=== PATIENT | female | born 1990 | race African-American/Black ===

== ENCOUNTER 2016-06-05 12:05 | Emergency (ER) | payer OTHER ==
[~2016-06-05 12:05] MED LIST: FLINCHW9 PO; MOTR200T44 PO; PERC5TAB6 PO; TYLE167L PO
--- NOTE | 2016-06-05 12:37 | ECGEPIP ---
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
--- NOTE | 2016-06-05 13:20 | EDDOCDS ---
Nurse's Notes [facility] Name: Blaine Mack Age: 26 yrs Sex: Female : 1990 Arrival Date: 06/05/2016 Time: 12:05 Bed 12 Private MD: Diagnosis: Presentation: 06/05 12:10 Presenting complaint: Patient states: states fatigue and SOB with menses x 2 years, ml6 patient states that today she had left chest pressure and began hyperventilating, then states face went numb, patient denies chest pain now, refused any interventions by EMS. patient refused. Adult Sepsis Screening: The patient does not have new or worsening altered mentation. Patient's respiratory rate is less than 22. Systolic blood pressure is greater than 100. Patient has a qSOFA score of 0- Negative Sepsis Screen. Suicide/Homicide risk assessment- the patient denies having any suicidal and/or homicidal ideations and does not present with any other emotional, behavioral or mental health complaints. Status: Patient is not a dining service inspector or dependent. Transition of care: patient was not received from another setting of care. 12:10 Acuity: DAMEON Level 4 ml6 12:10 Method Of Arrival: Ambulance ml6 Triage Assessment: 12:12 General: Appears in no apparent distress, Behavior is appropriate for age, cooperative. ml6 Pain: Denies pain. HIV screening NA for this visit Offered previously. The patient is triaged at the bedside. See Assessment in Nurses Notes section of ED record. Neurological: No deficits noted. Level of Consciousness is awake, alert, Oriented to person, place, time, Breakfast Hostess are equal bilaterally. Cardiovascular: Capillary refill < 3 seconds is brisk in bilateral fingers toes Heart tones S1 S2 present Edema is absent. Pulses are all present. Rhythm is sinus rhythm No ectopy. Chest pain is described as vague, quality is pressure, is located in left anterior chest wall radiates Does not radiate. episodes are intermittent began 2 hours prior to arrival. Respiratory: No deficits noted. 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 none - PMHx: Anemia; Anxiety; Depression; ectopic ; - PSHx: ; plastic surgery to face, due to a dog bite with she was 8 yrs old; Salpingectomy- Left; - Social history: Smoking status: Patient states was never smoker of tobacco. No barriers to communication noted, Speaks appropriately for age. - : The pt / caregiver states he / she is not on anticoagulants. Home medication list is obtained from the patient. - Exposure Risk Screening:: None identified. Screenin:38 Screening information is obtained from the patient. Fall risk: No risks identified. ml6 Assistance ADL's: requires no assistance with activities of daily living. Abuse/DV Screen: The patient / caregiver reports he/she is: not in a situation that causes fear, pain or injury. Nutritional screening: No deficits noted. Advance Directives: Currently, there is no health care proxy. home support is adequate. Assessment: 12:12 General: see triage assessment. Cardiovascular: Capillary refill < 3 seconds is brisk ml6 in bilateral fingers toes Heart tones S1 S2 present Edema is absent. Pulses are all present. Rhythm is regular Chest pain is denied. 13:17 General: went into room, patient found not to be in room. ml6 Vital Signs: 12:16 BP 112 / 57 (auto/); Pulse 66; Resp 16; Temp 98.7(O); Pulse Ox 98% on R/A; Weight 56.7 ml6 kg (R); Height 5 ft. (152.40 cm) (R); Pain 0/10; 12:16 Body Mass Index 24.41 (56.70 kg, 152.40 cm) ml6 Vitals: 12:10 Log In Time N/A - ambulance arrival. ml6 ED Course: 12:06 Patient visited by Aneta Bautista, Box Loader. lbd 12:06 Patient moved to Waiting lbd 12:06 Patient moved to 12 lbd 12:30 EKG done. (by ED staff). Reviewed by Jean Carlos HENAO. jml1 12:34 Triage Initiated ml6 12:38 Patient visited by Donnie Temple RN. ml6 12:42 Patient visited by Jaime Hope. jml1 12:48 EKG-ADULT Returned. EDMS 13:14 Patient visited by Donnie Temple RN. ml6 13:15 [facility] 13:15 Patient visited by Jean Carlos Gomez FNP. galo 13:15 Patient visited by Jean Carlos Gomez FNP. galo Order Results: Radiology Order: EKG-ADULT Test: EKG-ADULT REASON FOR EXAMINATION: Chest Pain; Stationary ECG Study; [facility] - ED; ; Test Date: 2016-06-05; Pat Name: BLAINE MACK Department:; Room: -; Gender: F Director Speech: NINO; : 1990 Requested By: JERMAN Piedra; Order Number: [id number] Reading MD: Singh Kang; Measurements; Intervals [place]; Rate: 60 P: -19; AL: 145 QRS: 50; QRSD: 94 T: 35; QT: 389; QTc: 391; Interpretive Statements; SINUS RHYTHM WITH SINUS ARRHYTHMIA; EARLY REPOLARIZATION; SIMILAR TO PRIORS; Electronically Signed On 06-05-2016 12:37:19 EST by Singh Kang; Outcome: 13:17 Eloped from treatment room before seeing physician Time discovered patient gone: ml6 June 05, 2016. 13:19 Patient left the ED. ml6 Signatures: Dispatcher [employer] EDMS Aneta Bautista, Box Loader Unit lbd Jean Carlos Gomez FNP FNP ke Lowe, Matthew, RN RN ml6 Jaime Hope jml1 MTDD
--- NOTE | 2016-06-05 13:20 | EDDOCDS ---
Physician Documentation [facility] Name: Lisseth Whiteside Age: 26 yrs Sex: Female : 1990 Arrival Date: 06/05/2016 Time: 12:05 Bed 12 Private MD: Disposition: 06/05/16 13:19 Patient left the facility Before provider Exam, with Interventions. - Patient left due to Unknown reason. Historical: - Allergies: Amoxicillin (Hives); clindamycin HCl ("made her lose her mind x 9 months"); Macrobid (Hives); - Home Meds: 1. none - PMHx: Anemia; Anxiety; Depression; ectopic ; - PSHx: ; plastic surgery to face, due to a dog bite with she was 8 yrs old; Salpingectomy- Left; - Social history: Smoking status: Patient states was never smoker of tobacco. No barriers to communication noted, Speaks appropriately for age. - : The pt / caregiver states he / she is not on anticoagulants. Home medication list is obtained from the patient. - Exposure Risk Screening:: None identified. 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 (152.40 cm) (R); Pain 0/10; 12:16 Body Mass Index 24.41 (56.70 kg, 152.40 cm) ml6 MDM: 12:24 ECG WITH READING ER PHYS+CARDIAG ordered. EDMS Signatures: Dispatcher [employer] EDMS Donnie Temple, RN RN ml6 MTDD
--- NOTE | 2016-06-05 13:21 | EDDOCDS ---
Nurse's Notes [facility] Name: Blaine Mack Age: 26 yrs Sex: Female : 1990 Arrival Date: 06/05/2016 Time: 12:05 Bed 12 Private MD: Diagnosis: Presentation: 06/05 12:10 Presenting complaint: Patient states: states fatigue and SOB with menses x 2 years, ml6 patient states that today she had left chest pressure and began hyperventilating, then states face went numb, patient denies chest pain now, refused any interventions by EMS. patient refused. Adult Sepsis Screening: The patient does not have new or worsening altered mentation. Patient's respiratory rate is less than 22. Systolic blood pressure is greater than 100. Patient has a qSOFA score of 0- Negative Sepsis Screen. Suicide/Homicide risk assessment- the patient denies having any suicidal and/or homicidal ideations and does not present with any other emotional, behavioral or mental health complaints. 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 Transition of care: patient was not received from another setting of care. 12:10 Acuity: DAMEON Level 4 ml6 12:10 Method Of Arrival: Ambulance ml6 Triage Assessment: 12:12 General: Appears in no apparent distress, Behavior is appropriate for age, cooperative. ml6 Pain: Denies pain. HIV screening NA for this visit Offered previously. The patient is triaged at the bedside. See Assessment in Nurses Notes section of ED record. Neurological: No deficits noted. Level of Consciousness is awake, alert, Oriented to person, place, time, Seat Pack Inspector are equal bilaterally. Cardiovascular: Capillary refill < 3 seconds is brisk in bilateral fingers toes Heart tones S1 S2 present Edema is absent. Pulses are all present. Rhythm is sinus rhythm No ectopy. Chest pain is described as vague, quality is pressure, is located in left anterior chest wall radiates Does not radiate. episodes are intermittent began 2 hours prior to arrival. Respiratory: No deficits noted. 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 none - PMHx: Anemia; Anxiety; Depression; ectopic ; - PSHx: ; plastic surgery to face, due to a dog bite with she was 8 yrs old; Salpingectomy- Left; - Social history: Smoking status: Patient states was never smoker of tobacco. No barriers to communication noted, Speaks appropriately for age. - : The pt / caregiver states he / she is not on anticoagulants. Home medication list is obtained from the patient. - Exposure Risk Screening:: None identified. Screenin:38 Screening information is obtained from the patient. Fall risk: No risks identified. ml6 Assistance ADL's: requires no assistance with activities of daily living. Abuse/DV Screen: The patient / caregiver reports he/she is: not in a situation that causes fear, pain or injury. Nutritional screening: No deficits noted. Advance Directives: Currently, there is no health care proxy. home support is adequate. Assessment: 12:12 General: see triage assessment. Cardiovascular: Capillary refill < 3 seconds is brisk ml6 in bilateral fingers toes Heart tones S1 S2 present Edema is absent. Pulses are all present. Rhythm is regular Chest pain is denied. 13:17 General: went into room, patient found not to be in room. ml6 Vital Signs: 12:16 BP 112 / 57 (auto/); Pulse 66; Resp 16; Temp 98.7(O); Pulse Ox 98% on R/A; Weight 56.7 ml6 kg (R); Height 5 ft. (152.40 cm) (R); Pain 0/10; 12:16 Body Mass Index 24.41 (56.70 kg, 152.40 cm) ml6 Vitals: 12:10 Log In Time N/A - ambulance arrival. ml6 ED Course: 12:06 Patient visited by Aneta Bautista, Freight Car Repairer. lbd 12:06 Patient moved to Waiting lbd 12:06 Patient moved to 12 lbd 12:30 EKG done. (by ED staff). Reviewed by Jean Carlos HENAO. jml1 12:34 Triage Initiated ml6 12:38 Patient visited by Donnie Temple RN. ml6 12:42 Patient visited by Jaime Hope. jml1 12:48 EKG-ADULT Returned. EDMS 13:14 Patient visited by Donnie Temple RN. ml6 13:15 [facility] F[facility]. 13:15 Patient visited by Jean Carlos Gomez FNP. galo 13:15 Patient visited by Jean Carlos Gomez FNP. galo Order Results: Radiology Order: EKG-ADULT Test: EKG-ADULT REASON FOR EXAMINATION: Chest Pain; Stationary ECG Study; 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 13:19 Patient left the ED. ml6 13:20 Patient left the ED. ml6 Signatures: Dispatcher [employer]Host EDAneta Rodrigues, Freight Car Repairer Unit lbd Jean Carlos Gomez FNP FNP ke Lowe, Matthew, HERSON RN ml6 Jaime Hope jml1 MTDD
--- NOTE | 2016-06-05 13:21 | EDDOCDS ---
Physician Documentation [facility] Name: Lisseth Whiteside Age: 26 yrs Sex: Female : 1990 Arrival Date: 06/05/2016 Time: 12:05 Bed 12 Private MD: Disposition: 06/05/16 13:19 Patient left the facility Before provider Exam, with Interventions. - Patient left due to Unknown reason. Historical: - Allergies: Amoxicillin (Hives); clindamycin HCl ("made her lose her mind x 9 months"); Macrobid (Hives); - Home Meds: 1. none - PMHx: Anemia; Anxiety; Depression; ectopic ; - PSHx: ; plastic surgery to face, due to a dog bite with she was 8 yrs old; Salpingectomy- Left; - Social history: Smoking status: Patient states was never smoker of tobacco. No barriers to communication noted, Speaks appropriately for age. - : The pt / caregiver states he / she is not on anticoagulants. Home medication list is obtained from the patient. - Exposure Risk Screening:: None identified. 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 (152.40 cm) (R); Pain 0/10; 12:16 Body Mass Index 24.41 (56.70 kg, 152.40 cm) ml6 MDM: 12:24 ECG WITH READING ER PHYS+CARDIAG ordered. EDMS Signatures: Dispatcher [employer] EDMS Donnie Temple, RN RN ml6 MTDD
--- NOTE | 2016-06-07 14:21 | EDDOCDS ---
Physician Documentation [facility] Name: Lisseth Whiteside Age: 26 yrs Sex: Female : 1990 Arrival Date: 06/05/2016 Time: 12:05 Bed 12 Private MD: Disposition: 06/05/16 13:19 Patient left the facility Before provider Exam, with Interventions. - Patient left due to Unknown reason. Historical: - Allergies: Amoxicillin (Hives); clindamycin HCl ("made her lose her mind x 9 months"); Macrobid (Hives); - Home Meds: 1. none - PMHx: Anemia; Anxiety; Depression; ectopic ; - PSHx: ; plastic surgery to face, due to a dog bite with she was 8 yrs old; Salpingectomy- Left; - Social history: Smoking status: Patient states was never smoker of tobacco. No barriers to communication noted, Speaks appropriately for age. - : The pt / caregiver states he / she is not on anticoagulants. Home medication list is obtained from the patient. - Exposure Risk Screening:: None identified. 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 (152.40 cm) (R); Pain 0/10; 12:16 Body Mass Index 24.41 (56.70 kg, 152.40 cm) ml6 MDM: 12:24 ECG WITH READING ER PHYS+CARDIAG ordered. EDMS 13:20 Disposition: pt not in room eloped from department prior to evaluation.. galo 15:49 ECG/EKG was scanned into [email or web address] and attached to record. gb Signatures: Dispatcher [employer] EDMS Sarah Gipson, Jean Carlos Alexandra, BUSINESS ENGLISH INSTRUCTOR BUSINESS ENGLISH INSTRUCTOR Donnie Alfonso, RN RN ml6 The chart was reviewed and I authenticate all verbal orders and agree with the evaluation and treatment provided.Attachments: 15:49 ECG/EKG gb Chart Complete MTDD
--- NOTE | 2016-06-07 14:21 | EDDOCDS ---
Physician Documentation [facility] Name: Lisseth Whiteside Age: 26 yrs Sex: Female : 1990 Arrival Date: 06/05/2016 Time: 12:05 Bed 12 Private MD: Disposition: 06/05/16 13:19 Patient left the facility Before provider Exam, with Interventions. - Patient left due to Unknown reason. Historical: - Allergies: Amoxicillin (Hives); clindamycin HCl ("made her lose her mind x 9 months"); Macrobid (Hives); - Home Meds: 1. none - PMHx: Anemia; Anxiety; Depression; ectopic ; - PSHx: ; plastic surgery to face, due to a dog bite with she was 8 yrs old; Salpingectomy- Left; - Social history: Smoking status: Patient states was never smoker of tobacco. No barriers to communication noted, Speaks appropriately for age. - : The pt / caregiver states he / she is not on anticoagulants. Home medication list is obtained from the patient. - Exposure Risk Screening:: None identified. 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 (152.40 cm) (R); Pain 0/10; 12:16 Body Mass Index 24.41 (56.70 kg, 152.40 cm) ml6 MDM: 12:24 ECG WITH READING ER PHYS+CARDIAG ordered. EDMS 13:20 Disposition: pt not in room eloped from department prior to evaluation.. galo 15:49 ECG/EKG was scanned into [email or web address] and attached to record. gb Signatures: Dispatcher [employer] EDMS Sarah Gipson, Jean Carlos Alexandra, SHIPPING AND RECEIVING ASSISTANT SHIPPING AND RECEIVING ASSISTANT Donnie Alfonso, RN RN ml6 The chart was reviewed and I authenticate all verbal orders and agree with the evaluation and treatment provided.Attachments: 15:49 ECG/EKG gb Chart Complete MTDD
--- NOTE | 2016-06-07 14:22 | EDDOCDS ---
Nurse's Notes [facility] Name: Blaine Mack Age: 26 yrs Sex: Female : 1990 Arrival Date: 06/05/2016 Time: 12:05 Bed 12 Private MD: Diagnosis: Presentation: 06/05 12:10 Presenting complaint: Patient states: states fatigue and SOB with menses x 2 years, ml6 patient states that today she had left chest pressure and began hyperventilating, then states face went numb, patient denies chest pain now, refused any interventions by EMS. patient refused. Adult Sepsis Screening: The patient does not have new or worsening altered mentation. Patient's respiratory rate is less than 22. Systolic blood pressure is greater than 100. Patient has a qSOFA score of 0- Negative Sepsis Screen. Suicide/Homicide risk assessment- the patient denies having any suicidal and/or homicidal ideations and does not present with any other emotional, behavioral or mental health complaints. Status: Patient is not a customer service specialist or dependent. Transition of care: patient was not received from another setting of care. 12:10 Acuity: DAMEON Level 4 ml6 12:10 Method Of Arrival: Ambulance ml6 Triage Assessment: 12:12 General: Appears in no apparent distress, Behavior is appropriate for age, cooperative. ml6 Pain: Denies pain. HIV screening NA for this visit Offered previously. The patient is triaged at the bedside. See Assessment in Nurses Notes section of ED record. Neurological: No deficits noted. Level of Consciousness is awake, alert, Oriented to person, place, time, Mold Washer are equal bilaterally. Cardiovascular: Capillary refill < 3 seconds is brisk in bilateral fingers toes Heart tones S1 S2 present Edema is absent. Pulses are all present. Rhythm is sinus rhythm No ectopy. Chest pain is described as vague, quality is pressure, is located in left anterior chest wall radiates Does not radiate. episodes are intermittent began 2 hours prior to arrival. Respiratory: No deficits noted. 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 none - PMHx: Anemia; Anxiety; Depression; ectopic ; - PSHx: ; plastic surgery to face, due to a dog bite with she was 8 yrs old; Salpingectomy- Left; - Social history: Smoking status: Patient states was never smoker of tobacco. No barriers to communication noted, Speaks appropriately for age. - : The pt / caregiver states he / she is not on anticoagulants. Home medication list is obtained from the patient. - Exposure Risk Screening:: None identified. Screenin:38 Screening information is obtained from the patient. Fall risk: No risks identified. ml6 Assistance ADL's: requires no assistance with activities of daily living. Abuse/DV Screen: The patient / caregiver reports he/she is: not in a situation that causes fear, pain or injury. Nutritional screening: No deficits noted. Advance Directives: Currently, there is no health care proxy. home support is adequate. Assessment: 12:12 General: see triage assessment. Cardiovascular: Capillary refill < 3 seconds is brisk ml6 in bilateral fingers toes Heart tones S1 S2 present Edema is absent. Pulses are all present. Rhythm is regular Chest pain is denied. 13:17 General: went into room, patient found not to be in room. ml6 Vital Signs: 12:16 BP 112 / 57 (auto/); Pulse 66; Resp 16; Temp 98.7(O); Pulse Ox 98% on R/A; Weight 56.7 ml6 kg (R); Height 5 ft. (152.40 cm) (R); Pain 0/10; 12:16 Body Mass Index 24.41 (56.70 kg, 152.40 cm) ml6 Vitals: 12:10 Log In Time N/A - ambulance arrival. ml6 ED Course: 12:06 Patient visited by Aneta Bautista, Clinical Trial Assistant. lbd 12:06 Patient moved to Waiting lbd 12:06 Patient moved to 12 lbd 12:30 EKG done. (by ED staff). Reviewed by Jean Carlos HENAO. jml1 12:34 Triage Initiated ml6 12:38 Patient visited by Donnie Temple RN. ml6 12:42 Patient visited by Jaime Hope. jml1 12:48 EKG-ADULT Returned. EDMS 13:14 Patient visited by Donnie Temple RN. ml6 13:15 [facility] 13:15 Patient visited by Jean Carlos Gomez FNP. ke 13:15 Patient visited by Jean Carlos Gomez FNP. ke 15:49 ECG/EKG was scanned into [employer] and attached to record. 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 13:19 Patient left the ED. ml6 13:20 Patient left the ED. ml6 06/06 12:15 A call has been made regarding followup for AMA or LWBS , I was unable to contact the tc patient by phone. A letter and discharge instructions has been mailed. Signatures: Dispatcher [employer] EDMS Aneta Bautista, Clinical Trial Assistant Unit lbd Mary Means Sarah Gipson, Reg Reg Jean Carlos Gomez FNP FNP ke Lowe, Matthew, RN RN ml6 Jaime Hopel1 Chart Complete MTDD
== END 2016-06-05 13:20 | disposition left against medical advice (07) ==
LOC: M ED 12:05
DX: Z53.21 Procedure and treatment not carried out due to patient leaving prior to being seen by health care provider (principal); D64.9 Anemia, unspecified; F41.9 Anxiety disorder, unspecified; F32.9 Major depressive disorder, single episode, unspecified; Z88.0 Allergy status to penicillin; Z88.1 Allergy status to other antibiotic agents

== ENCOUNTER 2016-08-26 23:19 | Emergency (ER) | payer OTHER ==
[~2016-08-26] VITALS: Ht 152.4 cm; Wt 54.4 kg
[2016-08-26 23:34] VITALS: BP 114/42
== END 2016-08-27 00:41 | disposition left against medical advice (07) ==
LOC: M ED 08-27 00:39
DX: Z53.29 Procedure and treatment not carried out because of patient's decision for other reasons (principal)

== ENCOUNTER 2016-10-08 10:48 | Emergency (ER) | payer OTHER ==
[~2016-10-08] VITALS: Ht 152.4 cm; Wt 53.5 kg
[~2016-10-08 10:48] MED LIST changes: +PERC5TAB12 PO; -PERC5TAB6 PO
[2016-10-08 12:47] LABS: CONTROL LINE UCG INT CTR LINE PRESENT
[2016-10-08 13:35] VITALS: BP 120/65
--- NOTE | 2016-10-08 13:39 | REP ---
PELVIC ULTRASOUND: Real-time sonographic evaluation of the pelvis performed utilizing transabdominal and endovaginal technique. Urinary bladder is empty. Uterus measures 9.6 x 4.2 x 5.5 cm. Endometrial thickness is 7 mm. The uterus appears to have a somewhat septate or subseptate appearance. Ovaries appear normal in size and echotexture, right ovary measuring 4.2 x 2.4 x 3.2 cm and left ovary 3.7 x 2.0 x 2.9 cm. There is no adnexal mass. There is trace free fluid which is likely physiologic in nature. There is no evidence of ovarian torsion, with blood flow seen in each ovary with duplex Doppler evaluation, RI right ovary 0.45 and left ovary 0.64. IMPRESSION: Negative pelvic ultrasound. Trace free fluid is likely physiologic. No mass or torsion. Signed by Rony Murillo MD 10/08/2016 05:02 P
[2016-10-08] MEDS ORDERED: METR0.759 PV (13:49)
[2017-02-20] MEDS ORDERED: CLIN150C14 PO (03:56)
[2017-02-20] MEDS ORDERED: IBUP-1022 PO (03:56)
[2017-02-20] MEDS ORDERED: NORCOTAB PO (03:56)
[2017-02-20] MEDS ORDERED: ZOFR4TAB3 PO (03:56)
== END 2016-10-08 13:53 | disposition home or self-care (01) ==
LOC: M ED 11:15
DX: N76.0 Acute vaginitis (principal); Z87.442 Personal history of urinary calculi; D64.9 Anemia, unspecified; F17.200 Nicotine dependence, unspecified, uncomplicated; Z88.0 Allergy status to penicillin; Z88.1 Allergy status to other antibiotic agents

== ENCOUNTER 2016-10-19 14:12 | Emergency (ER) | payer OTHER ==
[~2016-10-19] VITALS: Ht 152.4 cm; Wt 52.9 kg
[~2016-10-19 14:12] MED LIST changes: +METR0.759 PV
[2016-10-19] MEDS: ONDANSETRON 4 MG ORAL DISINTEGRATING TAB (S0181) PO ONE ×2 (14:45→14:47)
[2016-10-19 15:00] LABS: BASO % 0.2 % (0.0-1.0); EOS # 0.1 K/mm3 (0.0-0.50); EOS % 1.8 % (0.0-3.0); LARGE UNSTAINED CELL # 0.1 K/mm3 (0.0-0.4); LARGE UNSTAINED CELL % 1.2 % (0.0-4.0); LYMPH # 0.8 K/mm3 (1.5-6.5); LYMPH % 16.4 % (24.0-44.0); MEAN CORPUSCULAR HEMOGLOBIN 23.6 pg (27.0-33.0); MEAN CORPUSCULAR HGB CONC 31.2 g/dl (32.0-36.5); MEAN CORPUSCULAR VOLUME 75.5 fl (80.0-96.0); MONO # 0.2 K/mm3 (0.0-0.8); MONO % 4.5 % (0.0-5.0); NEUTROPHILS # 3.3 K/mm3 (1.8-7.7); NEUTROPHILS % 75.9 % (36.0-66.0); PLATELET COUNT, AUTOMATED 181 k/mm3 (150-450); RED CELL DISTRIBUTION WIDTH 15.6 % (11.5-14.5); WHITE BLOOD COUNT 4.4 K/mm3 (4.0-10.0)
[2016-10-19 15:27] LABS: ALBUMIN 3.9 GM/DL (3.2-5.2); ALBUMIN/GLOBULIN RATIO 1.08 (1.00-1.93); ALKALINE PHOSPHATASE 63 U/L (45-117); ALT/SGPT 14 U/L (12-78); ANION GAP 7 MEQ/L (8-16); AST/SGOT 13 U/L (15-37); BILIRUBIN,DIRECT 0.1 MG/DL (0.0-0.2); BILIRUBIN,TOTAL 0.5 MG/DL (0.2-1.0); BLOOD UREA NITROGEN 10 MG/DL (7-18); CALCIUM LEVEL 8.6 MG/DL (8.5-10.1); CARBON DIOXIDE LEVEL 20 MEQ/L (21-32); CHLORIDE LEVEL 112 MEQ/L (98-107); CREATININE FOR GFR 0.69 MG/DL (0.55-1.02); GLOMERULAR FILTRATION RATE > 60.0 (>60); GLUCOSE, FASTING 77 MG/DL (70-105); HCG, SERUM QUANTITATIVE < 1.0 MIU/ML; POTASSIUM SERUM 3.8 MEQ/L (3.5-5.1); SODIUM LEVEL 139 MEQ/L (136-145); TOTAL PROTEIN 7.5 GM/DL (6.4-8.2)
[2016-10-19] MEDS ORDERED: ZOFR4TAB3 PO (16:15)
[2016-10-19 16:22] VITALS: BP 106/71
[2017-02-20] MEDS ORDERED: CLIN150C14 PO (03:56)
[2017-02-20] MEDS ORDERED: ZOFR4TAB3 PO (03:56)
[2017-02-20] MEDS ORDERED: NORCOTAB PO (03:56)
[2017-02-20] MEDS ORDERED: IBUP-1022 PO (03:56)
== END 2016-10-19 16:22 | disposition home or self-care (01) ==
LOC: M ED 14:54
DX: R10.9 Unspecified abdominal pain (principal); R11.2 Nausea with vomiting, unspecified; R19.7 Diarrhea, unspecified; F17.210 Nicotine dependence, cigarettes, uncomplicated; Z87.442 Personal history of urinary calculi; Z88.0 Allergy status to penicillin; Z88.1 Allergy status to other antibiotic agents; Z88.8 Allergy status to other drugs, medicaments and biological substances

== ENCOUNTER 2017-04-15 12:17 | Emergency (ER) | payer MEDICAID, SELFPAY, OTHER ==
[2017-04-15 15:10] LABS: KETONE, URINE AUTO RFX NEGATIVE (NEGATIVE); LEUKOCYTE ESTERASE UR AUTO RFX 1+ (NEGATIVE); MUCUS, URINE RFX SMALL (NEGATIVE); NITRITE, URINE AUTO RFX NEGATIVE (NEGATIVE); RBC, URINE AUTO RFX 3 /HPF (0-3); SPECIFIC GRAVITY UR AUTO RFX 1.031 (1.002-1.035); SQUAM EPITHELIAL CELL UR AURFX 5 /HPF (0-6); WBC, URINE AUTO RFX 6 /HPF (0-3)
== END 2017-04-15 15:58 | disposition home or self-care (01) ==
LOC: M ED 12:17
DX: A56.02 Chlamydial vulvovaginitis (principal); N39.0 Urinary tract infection, site not specified; F41.9 Anxiety disorder, unspecified; F32.9 Major depressive disorder, single episode, unspecified; D64.9 Anemia, unspecified; F17.200 Nicotine dependence, unspecified, uncomplicated; Z87.442 Personal history of urinary calculi; Z88.0 Allergy status to penicillin; Z88.1 Allergy status to other antibiotic agents
CPT/HCPCS: 81001

== ENCOUNTER 2017-06-09 00:36 | Emergency (ER) | payer MEDICAID, OTHER ==
[2017-06-09 03:25] LABS: HEMATOCRIT 33.9 % (36.0-47.0); MEAN CORPUSCULAR HEMOGLOBIN 24.6 pg (27.0-33.0); MEAN CORPUSCULAR HGB CONC 32.4 g/dl (32.0-36.5); MEAN CORPUSCULAR VOLUME 75.8 fl (80.0-96.0); PLATELET COUNT, AUTOMATED 229 10^3/uL (150-450); RED BLOOD COUNT 4.47 10^6/uL (4.00-5.40); RED CELL DISTRIBUTION WIDTH 14.7 % (11.5-14.5); WHITE BLOOD COUNT 6.5 10^3/uL (4.0-10.0)
[2017-06-09 03:39] LABS: CONTROL LINE HCG INT CTR LINE PRESENT; HCG, SERUM QUALITATIVE NEGATIVE (NEGATIVE)
[2017-06-09 03:47] LABS: ALBUMIN 3.3 GM/DL (3.2-5.2); ALBUMIN/GLOBULIN RATIO 0.94 (1.00-1.93); ALKALINE PHOSPHATASE 56 U/L (45-117); ALT/SGPT 13 U/L (12-78); ANION GAP 7 MEQ/L (8-16); AST/SGOT 13 U/L (7-37); BILIRUBIN,DIRECT < 0.1 MG/DL (0.0-0.2); BILIRUBIN,TOTAL 0.2 MG/DL (0.2-1.0); BLOOD UREA NITROGEN 10 MG/DL (7-18); CALCIUM LEVEL 8.1 MG/DL (8.5-10.1); CARBON DIOXIDE LEVEL 25 MEQ/L (21-32); CHLORIDE LEVEL 112 MEQ/L (98-107); CREATININE FOR GFR 0.63 MG/DL (0.55-1.30); GLOMERULAR FILTRATION RATE > 60.0 (>60); GLUCOSE, FASTING 86 MG/DL (70-100); POTASSIUM SERUM 3.8 MEQ/L (3.5-5.1); SODIUM LEVEL 144 MEQ/L (136-145); TOTAL PROTEIN 6.8 GM/DL (6.4-8.2)
[2017-06-09] MEDS: GASTROGRAFIN SOLUTION 30ML PO ×4 (04:15→04:18)
[2017-06-09] MEDS ORDERED: ISOVUE-370 76% 100ML VIAL (Q9967) As Ordered ×2 (05:16)
[2017-06-09] MEDS: NS 1,000 ML IV ×2 (06:15)
[2017-06-09 06:22] LABS: KETONE, URINE AUTO RFX NEGATIVE (NEGATIVE); MUCUS, URINE RFX LARGE (NEGATIVE); RBC, URINE AUTO RFX 3 /HPF (0-3); SPECIFIC GRAVITY UR AUTO RFX 1.029 (1.002-1.035); SQUAM EPITHELIAL CELL UR AURFX 3 /HPF (0-6); WBC, URINE AUTO RFX 6 /HPF (0-3)
[2017-06-09 06:50] LABS: LEUKOCYTE ESTERASE UR AUTO RFX TRACE (NEGATIVE); NITRITE, URINE AUTO RFX POSITIVE (NEGATIVE)
[2017-06-09 11:55] LABS: CHLAMYDIA DNA AMPLIFICATION POSITIVE (NEGATIVE); GC DNA AMPLIFICATION NEGATIVE (NEGATIVE)
== END 2017-06-09 09:52 | disposition home or self-care (01) ==
LOC: M ED 00:36
DX: R10.2 Pelvic and perineal pain (principal); A74.9 Chlamydial infection, unspecified; Z88.0 Allergy status to penicillin; Z88.8 Allergy status to other drugs, medicaments and biological substances; F17.210 Nicotine dependence, cigarettes, uncomplicated
CPT/HCPCS: Q9963

== ENCOUNTER 2017-08-17 03:23 | Emergency (ER) | payer OTHER ==
[2017-08-17] MEDS: NS 1,000 ML IV (04:30)
[2017-08-17 04:36] LABS: BASO % 0.4 % (0.0-1.0); EOS # 0.2 10^3/uL (0.0-0.50); HEMATOCRIT 36.9 % (36.0-47.0); HEMOGLOBIN 11.8 g/dl (12.0-15.5); IMMATURE GRANULOCYTE % 0.4 % (0-3.0); LYMPH # 2.6 10^3/uL (1.5-6.5); LYMPH % 30.3 % (24.0-44.0); MEAN CORPUSCULAR HEMOGLOBIN 24.7 pg (27.0-33.0); MEAN CORPUSCULAR VOLUME 77.2 fl (80.0-96.0); MONO # 0.5 10^3/uL (0.0-0.8); MONO % 5.7 % (0.0-5.0); NEUTROPHILS # 5.2 10^3/uL (1.8-7.7); NEUTROPHILS % 61.2 % (36.0-66.0); PLATELET COUNT, AUTOMATED 250 10^3/uL (150-450); RED BLOOD COUNT 4.78 10^6/uL (4.00-5.40); RED CELL DISTRIBUTION WIDTH 14.6 % (11.5-14.5); WHITE BLOOD COUNT 8.5 10^3/uL (4.0-10.0)
[2017-08-17 04:42] LABS: KETONE, URINE AUTO RFX NEGATIVE (NEGATIVE); LEUKOCYTE ESTERASE UR AUTO RFX TRACE (NEGATIVE); MUCUS, URINE RFX SMALL (NEGATIVE); NITRITE, URINE AUTO RFX NEGATIVE (NEGATIVE); RBC, URINE AUTO RFX 5 /HPF (0-3); SPECIFIC GRAVITY UR AUTO RFX 1.029 (1.002-1.035); SQUAM EPITHELIAL CELL UR AURFX 4 /HPF (0-6); WBC, URINE AUTO RFX 6 /HPF (0-3)
[2017-08-17 04:52] LABS: CONTROL LINE HCG INT CTR LINE PRESENT; HCG, SERUM QUALITATIVE NEGATIVE (NEGATIVE)
[2017-08-17 05:00] LABS: ALBUMIN 3.9 GM/DL (3.2-5.2); ALKALINE PHOSPHATASE 58 U/L (45-117); ALT/SGPT 16 U/L (12-78); ANION GAP 7 MEQ/L (8-16); AST/SGOT 18 U/L (7-37); BILIRUBIN,DIRECT < 0.1 MG/DL (0.0-0.2); BILIRUBIN,TOTAL 0.1 MG/DL (0.2-1.0); BLOOD UREA NITROGEN 10 MG/DL (7-18); CALCIUM LEVEL 8.7 MG/DL (8.5-10.1); CARBON DIOXIDE LEVEL 22 MEQ/L (21-32); CHLORIDE LEVEL 111 MEQ/L (98-107); CREATININE FOR GFR 0.66 MG/DL (0.55-1.30); GLOMERULAR FILTRATION RATE > 60.0 (>60); GLUCOSE, FASTING 85 MG/DL (70-100); LIPASE 174 U/L (73-393); POTASSIUM SERUM 4.2 MEQ/L (3.5-5.1); SODIUM LEVEL 140 MEQ/L (136-145); TOTAL PROTEIN 7.8 GM/DL (6.4-8.2)
[2017-08-17 06:12] LABS: CHLAMYDIA DNA AMPLIFICATION NEGATIVE (NEGATIVE); GC DNA AMPLIFICATION NEGATIVE (NEGATIVE)
[2017-08-17] MEDS: MAALOX 30 ML SUSP *UDC PO (07:50)
== END 2017-08-17 07:56 | disposition home or self-care (01) ==
LOC: M ED 03:23
DX: R10.2 Pelvic and perineal pain (principal); F17.210 Nicotine dependence, cigarettes, uncomplicated; Z88.0 Allergy status to penicillin; Z88.8 Allergy status to other drugs, medicaments and biological substances
CPT/HCPCS: 76856

== ENCOUNTER 2017-09-09 05:39 | Emergency (ER) | payer OTHER | END 2017-09-09 09:34 | disposition home or self-care (01) | LOC: M ED 09:34 | DX: T74.21XA Adult sexual abuse, confirmed, initial encounter (principal); X58.XXXA Exposure to other specified factors, initial encounter; Y92.89 Other specified places as the place of occurrence of the external cause; R10.2 Pelvic and perineal pain; Z88.0 Allergy status to penicillin; Z88.8 Allergy status to other drugs, medicaments and biological substances | CPT/HCPCS: 81025 ==

== ENCOUNTER 2017-12-10 20:25 | Emergency (ER) | payer OTHER ==
[2017-12-10 22:40] LABS: KETONE, URINE AUTO RFX NEGATIVE (NEGATIVE); LEUKOCYTE ESTERASE UR AUTO RFX NEGATIVE (NEGATIVE); MUCUS, URINE RFX SMALL (NEGATIVE); NITRITE, URINE AUTO RFX NEGATIVE (NEGATIVE); RBC, URINE AUTO RFX 3 /HPF (0-3); SPECIFIC GRAVITY UR AUTO RFX 1.029 (1.002-1.035); SQUAM EPITHELIAL CELL UR AURFX 4 /HPF (0-6); WBC, URINE AUTO RFX 2 /HPF (0-3)
[2017-12-11 00:58] LABS: HCG, SERUM QUANTITATIVE 1025 MIU/ML
[2017-12-11 01:25] LABS: CHLAMYDIA DNA AMPLIFICATION NEGATIVE (NEGATIVE); GC DNA AMPLIFICATION NEGATIVE (NEGATIVE)
== END 2017-12-11 01:26 | disposition home or self-care (01) ==
LOC: M ED 12-11 01:26
DX: O99.89 Other specified diseases and conditions complicating pregnancy, childbirth and the puerperium (principal); N76.0 Acute vaginitis; Z3A.01 Less than 8 weeks gestation of pregnancy; O99.340 Other mental disorders complicating pregnancy, unspecified trimester; F41.9 Anxiety disorder, unspecified; O99.011 Anemia complicating pregnancy, first trimester; Z88.0 Allergy status to penicillin; Z88.8 Allergy status to other drugs, medicaments and biological substances; O09.11 Supervision of pregnancy with history of ectopic pregnancy, first trimester; O99.331 Smoking (tobacco) complicating pregnancy, first trimester; F17.210 Nicotine dependence, cigarettes, uncomplicated
CPT/HCPCS: 76801

== ENCOUNTER 2017-12-25 23:36 | Emergency (ER) | payer OTHER ==
[2017-12-26 01:06] LABS: BASO % 0.3 % (0.0-1.0); EOS # 0.2 10^3/uL (0.0-0.50); EOS % 2.4 % (0.0-3.0); HEMATOCRIT 36.1 % (36.0-47.0); HEMOGLOBIN 11.7 g/dl (12.0-15.5); IMMATURE GRANULOCYTE % 0.6 % (0-3.0); LYMPH # 2.4 10^3/uL (1.5-6.5); LYMPH % 27.3 % (24.0-44.0); MEAN CORPUSCULAR HGB CONC 32.4 g/dl (32.0-36.5); MEAN CORPUSCULAR VOLUME 77.1 fl (80.0-96.0); MONO # 0.6 10^3/uL (0.0-0.8); MONO % 7.2 % (0.0-5.0); NEUTROPHILS # 5.5 10^3/uL (1.8-7.7); NEUTROPHILS % 62.2 % (36.0-66.0); PLATELET COUNT, AUTOMATED 241 10^3/uL (150-450); RED BLOOD COUNT 4.68 10^6/uL (4.00-5.40); RED CELL DISTRIBUTION WIDTH 14.6 % (11.5-14.5); WHITE BLOOD COUNT 8.9 10^3/uL (4.0-10.0)
[2017-12-26 01:43] LABS: ANION GAP 7 MEQ/L (8-16); BLOOD UREA NITROGEN 10 MG/DL (7-18); CALCIUM LEVEL 8.8 MG/DL (8.5-10.1); CARBON DIOXIDE LEVEL 25 MEQ/L (21-32); CHLORIDE LEVEL 107 MEQ/L (98-107); CREATININE FOR GFR 0.67 MG/DL (0.55-1.30); GLOMERULAR FILTRATION RATE > 60.0 (>60); GLUCOSE, FASTING 77 MG/DL (70-100); HCG, SERUM QUANTITATIVE 69581 MIU/ML; POTASSIUM SERUM 3.5 MEQ/L (3.5-5.1); SODIUM LEVEL 139 MEQ/L (136-145)
[2017-12-26 02:09] LABS: KETONE, URINE AUTO RFX NEGATIVE (NEGATIVE); LEUKOCYTE ESTERASE UR AUTO RFX NEGATIVE (NEGATIVE); MUCUS, URINE RFX LARGE (NEGATIVE); NITRITE, URINE AUTO RFX NEGATIVE (NEGATIVE); RBC, URINE AUTO RFX 3 /HPF (0-3); SQUAM EPITHELIAL CELL UR AURFX 1 /HPF (0-6); WBC, URINE AUTO RFX 4 /HPF (0-3)
== END 2017-12-26 02:19 | disposition home or self-care (01) ==
LOC: M ED 23:36
DX: O20.8 Other hemorrhage in early pregnancy (principal); O99.611 Diseases of the digestive system complicating pregnancy, first trimester; K59.00 Constipation, unspecified; Z3A.01 Less than 8 weeks gestation of pregnancy; O99.011 Anemia complicating pregnancy, first trimester; O99.341 Other mental disorders complicating pregnancy, first trimester; F33.9 Major depressive disorder, recurrent, unspecified; F41.9 Anxiety disorder, unspecified; Z87.442 Personal history of urinary calculi; O09.11 Supervision of pregnancy with history of ectopic pregnancy, first trimester; Z88.0 Allergy status to penicillin; Z88.8 Allergy status to other drugs, medicaments and biological substances
CPT/HCPCS: 76801

== ENCOUNTER 2018-02-06 19:41 | Emergency (ER) | payer OTHER ==
[2018-02-06 20:15] LABS: HEMATOCRIT 35.4 % (36.0-47.0); HEMOGLOBIN 11.7 g/dl (12.0-15.5); MEAN CORPUSCULAR HEMOGLOBIN 25.5 pg (27.0-33.0); MEAN CORPUSCULAR HGB CONC 33.1 g/dl (32.0-36.5); MEAN CORPUSCULAR VOLUME 77.1 fl (80.0-96.0); PLATELET COUNT, AUTOMATED 248 10^3/uL (150-450); RED BLOOD COUNT 4.59 10^6/uL (4.00-5.40); RED CELL DISTRIBUTION WIDTH 14.6 % (11.5-14.5); WHITE BLOOD COUNT 12.8 10^3/uL (4.0-10.0)
[2018-02-06] MEDS: NS 1,000 ML IV (20:30)
[2018-02-06 21:07] LABS: ALBUMIN 3.5 GM/DL (3.2-5.2); ALBUMIN/GLOBULIN RATIO 0.81 (1.00-1.93); ALKALINE PHOSPHATASE 54 U/L (45-117); ALT/SGPT 21 U/L (12-78); ANION GAP 15 MEQ/L (8-16); AST/SGOT 18 U/L (7-37); BILIRUBIN,DIRECT < 0.1 MG/DL (0.0-0.2); BILIRUBIN,TOTAL 0.2 MG/DL (0.2-1.0); BLOOD UREA NITROGEN 14 MG/DL (7-18); CALCIUM LEVEL 9.3 MG/DL (8.5-10.1); CARBON DIOXIDE LEVEL 20 MEQ/L (21-32); CHLORIDE LEVEL 103 MEQ/L (98-107); CREATININE FOR GFR 0.66 MG/DL (0.55-1.30); GLOMERULAR FILTRATION RATE > 60.0 (>60); GLUCOSE, FASTING 90 MG/DL (70-100); HCG, SERUM QUANTITATIVE 23005 MIU/ML; LIPASE 178 U/L (73-393); POTASSIUM SERUM 3.9 MEQ/L (3.5-5.1); SODIUM LEVEL 138 MEQ/L (136-145); TOTAL PROTEIN 7.8 GM/DL (6.4-8.2)
[2018-02-06 21:54] LABS: AMORPHOUS SEDIMENT RFX SMALL (NEGATIVE); KETONE, URINE AUTO RFX NEGATIVE (NEGATIVE); LEUKOCYTE ESTERASE UR AUTO RFX NEGATIVE (NEGATIVE); NITRITE, URINE AUTO RFX NEGATIVE (NEGATIVE); RBC, URINE AUTO RFX 2 /HPF (0-3); SPECIFIC GRAVITY UR AUTO RFX 1.021 (1.002-1.035); SQUAM EPITHELIAL CELL UR AURFX 2 /HPF (0-6); WBC, URINE AUTO RFX 2 /HPF (0-3)
== END 2018-02-06 22:43 | disposition home or self-care (01) ==
LOC: M ED 19:41
DX: O26.891 Other specified pregnancy related conditions, first trimester (principal); R10.2 Pelvic and perineal pain; O21.9 Vomiting of pregnancy, unspecified; O99.281 Endocrine, nutritional and metabolic diseases complicating pregnancy, first trimester; E86.0 Dehydration; Z3A.12 12 weeks gestation of pregnancy; Z87.442 Personal history of urinary calculi; Z88.0 Allergy status to penicillin; Z88.8 Allergy status to other drugs, medicaments and biological substances
CPT/HCPCS: 76801

== ENCOUNTER 2018-03-17 13:06 | Emergency (ER) | payer OTHER ==
[2018-03-17 13:42] LABS: KETONE, URINE AUTO RFX NEGATIVE (NEGATIVE); LEUKOCYTE ESTERASE UR AUTO RFX NEGATIVE (NEGATIVE); MUCUS, URINE RFX SMALL (NEGATIVE); NITRITE, URINE AUTO RFX NEGATIVE (NEGATIVE); RBC, URINE AUTO RFX 2 /HPF (0-3); SPECIFIC GRAVITY UR AUTO RFX 1.016 (1.002-1.035); SQUAM EPITHELIAL CELL UR AURFX 2 /HPF (0-6); WBC, URINE AUTO RFX 2 /HPF (0-3)
== END 2018-03-17 14:56 | disposition home or self-care (01) ==
LOC: M ED 13:06
DX: O26.892 Other specified pregnancy related conditions, second trimester (principal); R10.2 Pelvic and perineal pain; O99.012 Anemia complicating pregnancy, second trimester; O26.20 Pregnancy care for patient with recurrent pregnancy loss, unspecified trimester; Z3A.18 18 weeks gestation of pregnancy; Z88.0 Allergy status to penicillin; Z88.1 Allergy status to other antibiotic agents
CPT/HCPCS: 76811

== ENCOUNTER 2018-05-02 20:30 | Outpatient (CLI) | payer OTHER ==
[~2018-05-02] VITALS: Ht 149.9 cm; Wt 70.0 kg
[~2018-05-02 20:30] MED LIST changes: +AZIT500T2 PO; +BACT800T5 PO; +CLIN150C14 PO; +COLA100C5 PO; +FLIN1CHW PO; +IBUP-1022 PO; +METR1GEL7 PV; +NORCOTAB PO; +SIME180C PO; +ZOFR4TAB14 PO; +[UNRECOGNIZED DRUG - CODE] PO
[2018-05-02 21:22] VITALS: BP 103/51
[2018-05-02 22:39] LABS: APPEARANCE, URINE HAZY (CLEAR); BACTERIA, URINE AUTO NEGATIVE (NEGATIVE); BILIRUBIN, URINE AUTO NEGATIVE (NEGATIVE); BLOOD, URINE BLOOD NEGATIVE (NEGATIVE); COLOR, URINE YELLOW (YELLOW); GLUCOSE, URINE (UA) AUTO NEGATIVE (NEGATIVE); KETONE, URINE AUTO NEGATIVE (NEGATIVE); LEUKOCYTE ESTERASE, URINE AUTO TRACE (NEGATIVE); NITRITE, URINE AUTO NEGATIVE (NEGATIVE); PROTEIN, URINE AUTO NEGATIVE (NEGATIVE); RBC, URINE AUTO 2 /HPF (0-3); SPECIFIC GRAVITY URINE AUTO 1.024 (1.002-1.035); SQUAMOUS EPITHELIAL CELL UR AU 8 /HPF (0-6); UROBILINOGEN, URINE AUTO 0.2 mg/dL (0.0-2.0); WBC, URINE AUTO 3 /HPF (0-3)
[2018-05-02 23:13] VITALS: BP 104/51
--- NOTE | 2018-05-03 08:07 | HPE ---
DATE OF ADMISSION: 05/02/2018 REASON FOR VISIT: Headache. Hip pain. HISTORY OF PRESENT ILLNESS: Mrs. Whiteside is a 38-year-old 8, para 4 who presented at 26 weeks with an EDC of August 17, 2018 with complaint of ongoing headaches along with some visual disturbances and hip pain. She reports that she has been suffering from chronic headaches and she tries to avoid any medication including Tylenol. She normally rests and meditates which has reduced the intensity of these headaches, but she still reports frequent headaches. She describes hip discomfort bilaterally, worse with activity. She denies any vaginal bleeding, irregular contractions, leakage of fluid, dysuria, or vaginal discharge. COURSE: She presents as unregistered patient of Marie Patino. Reports no complications. PAST MEDICAL HISTORY: None. PAST SURGICAL HISTORY: She has had a salpingectomy for an ectopic . OBSTETRICAL HISTORY: She is a 5, para 4. She has had four term uncomplicated vaginal deliveries. MEDICATIONS: None. ALLERGIES: She has multiple allergies to MACROBID, PENICILLIN, CLINDAMYCIN. SOCIAL HISTORY: Denies any alcohol, tobacco or drug use during her . PHYSICAL EXAMINATION: Her vital signs are stable. She is afebrile. She has a reassuring heart tracing. No contractions on tocometer. General appearance: Well appearing, in no acute distress. Neurologically: She is grossly intact. Abdomen is gravid, nontender. Lungs are clear to auscultation bilaterally. Cardiovascular: Heart regular rate and rhythm. Extremities: Full range of motion with bilateral extremities. Abdomen is gravid, benign, nontender. Her urinalysis was unremarkable. ASSESSMENT: 1. Mrs. Whiteside is a 28-year-old 8, para 4 with chronic headaches and hip discomfort. 2. Reassuring status. PLAN: 1. I discussed Tylenol 1000 mg every 6 hours for headaches and pain and discomfort. 2. She was provided with labor precaution. 3. She will followup with Marie Patino, her primary obstetrical provider. [facility]PITALJamila
== END 2018-05-02 23:15 | disposition home or self-care (01) ==
LOC: M LDO 20:30
PROVIDERS: ATTEND Obstetrics & Gynecology
DX: O99.89 Other specified diseases and conditions complicating pregnancy, childbirth and the puerperium (principal); R51 Headache; G89.29 Other chronic pain; M25.551 Pain in right hip; M25.552 Pain in left hip; Z3A.26 26 weeks gestation of pregnancy; Z88.0 Allergy status to penicillin; Z88.1 Allergy status to other antibiotic agents

== ENCOUNTER 2018-06-05 18:27 | Outpatient (CLI) | payer OTHER ==
[~2018-06-05] VITALS: Ht 152.4 cm; Wt 73.3 kg
[2018-06-05 18:48] VITALS: BP 98/56
--- NOTE | 2018-06-05 21:36 | REPVR ---
EXAM: US , Transvaginal EXAM DATE/TIME: 06/05/18 (8:16pm) CLINICAL HISTORY: 28 year old female. Third trimester. Lower abdominal / pelvic pain and cramping. Gestational age: 29 weeks 3 days. Assess cervical length. TECHNIQUE: Real-time transvaginal obstetrical ultrasound of the maternal pelvis and a first trimester with image documentation. Transvaginal imaging was used for better evaluation of the fetus and adnexa. COMPARISON: US OB of 03/17/18 US OB report from 12/21/17 FINDINGS: The LMP is reported to be: 11/08/17 A single live intrauterine is identified. age parameters were not measured at this time. Based on an earlier sonogram of 01/15/18, the current expected age = 29 weeks 3 days. Close correlation with the menstrual history is noted. Normal interval growth is noted over the past 11 weeks and the past 5-6 months. heart rate is recorded at 141 bpm. The fetus lies vertex. The placenta is posterior, with no evidence of previa. The cervix is closed, measuring 4.9 cm in length. No 'funnelling' is observed. Umbilical artery doppler reveals an S/D ratio = 2.74 (in the normal range). Amniotic fluid volume is adequate, with the ADIA = 13.8 cm (at the 45th percentile for this age). The deepest fluid pocket = 4.3 cm. A anatomic survey was not requested nor performed at this time. IMPRESSION: A single live intrauterine is identified, approx. 29 weeks 3 days gestational age, based on an earlier sonogram. Based on the earlier sonogram, the DENNY = 08/18/18 heartbeat is seen. The placenta is posterior, with no previa noted. The cervix is closed. See additional comments and measurements noted above. Electronically signed by: Mayelin Zamora On 06/05/2018 21:36:12 PM
--- NOTE | 2018-06-05 21:49 | IPNPDOC ---
Text Note Date of Service The patient was seen on 06/05/18. NOTE 28yo DENNY 08/15/18. Pt of Marie Patino presents @ 29 wks with complaints of cramping and pelvic discomfort. Pt reports history of threatened PTL with previous pregnancies but carried to term. History significant for stillbirth @ 23 wks. NAD, reports pressure Rare irregular UC on monitor. Abdomen soft, gravid FH 145, moderate variabiltiy, reassuring for gestation SSE cervix visually parous, long, thick. Moderate creamy discharge FFN obtained, negative. TVUS shows cervical length 4.9cm, no funneling. Normal interval growth UA/C&S sent Discharged home, instructed to keep next appt. Enc increased hydration. VS,Fishbone, I+O VS, Fishbone, I+O Vital Signs Date Time Temp Pulse Resp B/P (MAP) Pulse Ox O2 Delivery O2 Flow Rate FiO2 06/05/18 18:48 97.5 90 18 98/56 (70) Angela Torres CNM Jun 05, 2018 21:49
[2018-06-05 22:57] LABS: APPEARANCE, URINE HAZY (CLEAR); BACTERIA, URINE AUTO 3+ (NEGATIVE); BILIRUBIN, URINE AUTO NEGATIVE (NEGATIVE); BLOOD, URINE BLOOD NEGATIVE (NEGATIVE); COLOR, URINE YELLOW (YELLOW); GLUCOSE, URINE (UA) AUTO NEGATIVE (NEGATIVE); KETONE, URINE AUTO NEGATIVE (NEGATIVE); LEUKOCYTE ESTERASE, URINE AUTO NEGATIVE (NEGATIVE); MUCUS, URINE MODERATE (NEGATIVE); NITRITE, URINE AUTO POSITIVE (NEGATIVE); PROTEIN, URINE AUTO NEGATIVE (NEGATIVE); RBC, URINE AUTO 2 /HPF (0-3); SPECIFIC GRAVITY URINE AUTO 1.027 (1.002-1.035); SQUAMOUS EPITHELIAL CELL UR AU 8 /HPF (0-6); WBC, URINE AUTO 5 /HPF (0-3)
== END 2018-06-05 21:50 | disposition home or self-care (01) ==
LOC: M LDO 18:27
PROVIDERS: ATTEND Advanced Practice Midwife
DX: O26.893 Other specified pregnancy related conditions, third trimester (principal); R10.30 Lower abdominal pain, unspecified; Z3A.29 29 weeks gestation of pregnancy

== ENCOUNTER 2018-06-22 11:05 | Outpatient (CLI) | payer OTHER ==
[~2018-06-22] VITALS: Ht 152.4 cm; Wt 73.9 kg
[2018-06-22 11:24] VITALS: BP 88/53
[2018-06-22] MEDS ORDERED: LACTATED RINGER'S 1000 ML IV ONE (12:15)
[2018-06-22] MEDS ORDERED: LR 1,000 ML IV SCH (12:15)
[2018-06-22 12:30] VITALS: BP 104/46
[2018-06-22 13:00] LABS: BASO % 0.4 % (0.0-1.0); EOS # 0.1 10^3/uL (0.0-0.50); EOS % 0.7 % (0.0-3.0); HEMATOCRIT 28.7 % (36.0-47.0); HEMOGLOBIN 9.2 g/dl (12.0-15.5); LYMPH # 0.6 10^3/uL (1.5-6.5); LYMPH % 5.4 % (24.0-44.0); MEAN CORPUSCULAR HEMOGLOBIN 23.7 pg (27.0-33.0); MEAN CORPUSCULAR HGB CONC 32.1 g/dl (32.0-36.5); MEAN CORPUSCULAR VOLUME 73.8 fl (80.0-96.0); MONO # 0.7 10^3/uL (0.0-0.8); MONO % 6.1 % (0.0-5.0); NEUTROPHILS # 9.1 10^3/uL (1.8-7.7); NEUTROPHILS % 82.9 % (36.0-66.0); PLATELET COUNT, AUTOMATED 213 10^3/uL (150-450); RED BLOOD COUNT 3.89 10^6/uL (4.00-5.40)
[2018-06-22 13:37] LABS: BLOOD UREA NITROGEN 7 MG/DL (7-18); CALCIUM LEVEL 7.8 MG/DL (8.5-10.1); CARBON DIOXIDE LEVEL 21 MEQ/L (21-32); CHLORIDE LEVEL 106 MEQ/L (98-107); GLOMERULAR FILTRATION RATE > 60.0 (>60); GLUCOSE, FASTING 81 MG/DL (70-100); POTASSIUM SERUM 3.7 MEQ/L (3.5-5.1); SODIUM LEVEL 137 MEQ/L (136-145)
[2018-06-22 13:37] LABS: APPEARANCE, URINE HAZY (CLEAR); BACTERIA, URINE AUTO 2+ (NEGATIVE); BILIRUBIN, URINE AUTO NEGATIVE (NEGATIVE); BLOOD, URINE BLOOD NEGATIVE (NEGATIVE); COLOR, URINE YELLOW (YELLOW); GLUCOSE, URINE (UA) AUTO NEGATIVE (NEGATIVE); KETONE, URINE AUTO NEGATIVE (NEGATIVE); LEUKOCYTE ESTERASE, URINE AUTO TRACE (NEGATIVE); MUCUS, URINE MODERATE (NEGATIVE); NITRITE, URINE AUTO POSITIVE (NEGATIVE); PROTEIN, URINE AUTO 1+ mg/dL (NEGATIVE); RBC, URINE AUTO 1 /HPF (0-3); SPECIFIC GRAVITY URINE AUTO 1.024 (1.002-1.035); SQUAMOUS EPITHELIAL CELL UR AU 0 /HPF (0-6); WBC, URINE AUTO 6 /HPF (0-3)
[2018-06-23] MEDS ORDERED: MACR100C43 PO (08:08)
[2018-06-23] MEDS ORDERED: KEFL500C17 PO (08:12)
== END 2018-06-22 13:32 | disposition left against medical advice (07) ==
LOC: M LDO 11:05 → M LDI 11:48 → M LDO 13:32
PROVIDERS: ATTEND Obstetrics & Gynecology
DX: O26.899 Other specified pregnancy related conditions, unspecified trimester (principal); M54.5 Low back pain; Z53.21 Procedure and treatment not carried out due to patient leaving prior to being seen by health care provider; Z3A.00 Weeks of gestation of pregnancy not specified

== ENCOUNTER → 2018-07-15 | Outpatient (REF) | payer OTHER ==
[~2018-07-15] MED LIST changes: +KEFL500C17 PO; +MACR100C43 PO
== END ==
LOC: M LAB REF 13:01
PROVIDERS: ATTEND Advanced Practice Midwife
DX: Z34.83 Encounter for supervision of other normal pregnancy, third trimester (principal)

== ENCOUNTER → 2018-07-22 | Outpatient (REF) | payer OTHER ==
[~2018-07-22] MED LIST changes: +HYDR-3715 PO; -NORCOTAB PO
== END ==
LOC: M LAB REF 13:01
PROVIDERS: ATTEND Advanced Practice Midwife
DX: O09.293 Supervision of pregnancy with other poor reproductive or obstetric history, third trimester (principal); Z3A.00 Weeks of gestation of pregnancy not specified

== ENCOUNTER 2018-07-28 14:10 | Outpatient (CLI) | payer OTHER ==
[~2018-07-28] VITALS: Ht 149.9 cm; Wt 74.4 kg
[2018-07-28 14:31] VITALS: BP 116/55
--- NOTE | 2018-07-28 15:53 | NUR ---
L&D Note: S: 28yo at 37w3d presents with c/o LOF. She reports 1 gush of clear fluid ~1300 today. No further leaking. She has started to have some irregular contractions. She states that contractions have increase in intensity of the last 30mins. No vaginal bleeding. +AFM O: vss, AF cat 1 FHR 140s with moderate variability, + acceles gen: well appearing cx: 1-2/50/-3 abd: gravid, nttp SSE: neg Nitrazine, neg pooling and valsva TAUS: ceph, ADIA: 13cm, active A/P: 28yo at 37w3d, not SROM reassuring status -home with labor precautions and FKCs -OB appt 07/30 Thelma Brown MD
[2018-07-28 15:59] VITALS: BP 114/56
== END 2018-07-28 16:00 | disposition home or self-care (01) ==
LOC: M LDO 14:10
PROVIDERS: ATTEND Obstetrics & Gynecology
DX: O26.893 Other specified pregnancy related conditions, third trimester (principal); N89.8 Other specified noninflammatory disorders of vagina; O47.1 False labor at or after 37 completed weeks of gestation; Z3A.37 37 weeks gestation of pregnancy

== ENCOUNTER 2018-08-01 01:19 | Outpatient (CLI) | payer OTHER ==
--- NOTE | 2018-08-01 02:25 | IPNPDOC ---
Text Note Date of Service The patient was seen on 08/01/18. NOTE 28yo G [id number] DENNY 08/17/18. Presents @ 37w5d with complaints of UC for the last 2 hours. Denies LOF or bleeding. Fetus active FH 145, Cat I, fetus very active UC 3-8 minutes apart x 45-60 seconds SVE unchanged from previous exam /3 Will hydrate, observe and reassess Angela Torres CNM Aug 01, 2018 02:25
== END 2018-08-01 02:52 | disposition home or self-care (01) ==
LOC: M LDO 01:19
PROVIDERS: ATTEND Advanced Practice Midwife
DX: O26.893 Other specified pregnancy related conditions, third trimester (principal); O47.1 False labor at or after 37 completed weeks of gestation; Z3A.37 37 weeks gestation of pregnancy

== ENCOUNTER 2018-08-13 00:25 | Inpatient (IN) | payer OTHER ==
[2018-08-13] VITALS (33 sets, daily range): BP systolic 97–140; BP diastolic 50–87
[~2018-08-13] VITALS: Ht 152.4 cm; Wt 74.5 kg
[2018-08-13] MEDS: miSOPROStol 50 MCG 1/2 TAB (S0191) PV SCH ×2 (02:00→06:00)
[2018-08-13 02:06] LABS: HEMATOCRIT 28.5 % (36.0-47.0); HEMOGLOBIN 9.2 g/dl (12.0-15.5); MEAN CORPUSCULAR HEMOGLOBIN 22.8 pg (27.0-33.0); MEAN CORPUSCULAR HGB CONC 32.3 g/dl (32.0-36.5); MEAN CORPUSCULAR VOLUME 70.5 fl (80.0-96.0); PLATELET COUNT, AUTOMATED 278 10^3/uL (150-450); RED BLOOD COUNT 4.04 10^6/uL (4.00-5.40); WHITE BLOOD COUNT 13.1 10^3/uL (4.0-10.0)
[2018-08-13] MEDS ORDERED: LACTATED RINGER'S 1000 ML IV ONE (06:15)
--- NOTE | 2018-08-13 06:24 | NUR ---
Progress Note S:Requests cervical exam and epidural O: T98.9, P86, R20, B/P104/54 FHR 140 moderate variability, positive accels, and no decelerations Contractions every 2- 4 minutes, palpate moderate SVE: 2-3/50/-1. No show with exam A: IUP at 39 3/7. FHR category I P: IV fluid bolus, anesthesia consult.
[2018-08-13] MEDS ORDERED: OXYTOCIN 30 UNITS IN 0.9% NaCl 500ML IV BAG (J2590) As Ordered ONE (06:31)
[2018-08-13] MEDS ORDERED: FENTANYL 2MCG/ML ROPIVACAINE 0.2% IN 0.9% NACL 100ML IVBAG As Ordered ONE (06:31)
--- NOTE | 2018-08-13 07:03 | HPE ---
DATE OF ADMISSION: 08/13/2018 Lisseth is a 28-year-old 10 para 3-1-4-4. She is at 39-3/7 weeks gestation with an EDC of 08/17/2018 based on last menstrual period. She presents to labor and delivery today for induction of labor per patient request. She reports contractions that have been irregular but uncomfortable for the last several days. She denies any vaginal bleeding and leakage of fluid. The fetus has been active. Her care was initiated at an alternate care provider with transfer of care to [facility] at 35 weeks. She has a history of a fetus with skeletal dysplasia and history of a delivery at 23 weeks. She did not regularly have Lay injections. A history of anxiety and depression. No medication. Group B Streptococcus (GBS) positive. The patient has refused antibiotics for Group B Streptococcus (GBS) treatment. OBSTETRICAL HISTORY: October 2005, 23 weeks gestation vaginal delivery. following delivery immediately. October 2008, 37 weeks spontaneous vaginal delivery following induction of labor due to fetus having skeletal dysplasia. April 2010, spontaneous miscarriage at 9 weeks. January 2012, 38 weeks gestation, spontaneous labor, 5 pounds 12 ounces female with a spontaneous vaginal delivery. April 2012, 8 weeks spontaneous . December 2013, 39 weeks gestation, spontaneous vaginal delivery, 6 pounds 7 ounces female following an induction. January 2015, spontaneous vaginal delivery, 6 pounds 2 ounces male. September 2015, ectopic , ruptured, left salpingectomy. April 2016, elective termination. OBSTETRIC LABS: B+, antibody screen negative, rubella immune, VDRL nonreactive. Several urine cultures positive for E-coli the patient failed to consistently take antibiotics as directed. Most recent culture on 07/15/2018 with E-coli with colony count greater than 100,000. The patient has tolerated Keflex but has not taken it as directed. Very sporadically for 2-3 days. Hepatitis B surface antigen negative, HIV negative. Hepatitic C antibody nonreactive. Gonorrhea, chlamydia negative. She has never had her gestational diabetic screening performed and she is GBS positive. PAST MEDICAL HISTORY: Depression and anxiety. SURGERIES: Left salpingectomy. Multiple surgeries related to a dog bite on her face at age 8. FAMILY HISTORY: Noncontributory. SOCIAL HISTORY: The patient is single, however the father of baby is at bedside and supportive. She reports smoking prior to but reports quitting with onset of . She has a history of chlamydia and denies alcohol and drug use. She denies history of abuse physical, sexual and emotional. ALLERGIES. AMOXICILLIN, MACROBID, PENICILLIN, CLINDAMYCIN. CURRENT MEDICATIONS: - vitamin - Keflex 500 mg OBJECTIVE: Temperature 98.5, pulse 100, respirations 18, blood pressure 118/58. heart rate is 145 with moderate variability, positive accelerations observed. No decelerations observed. Contractions are occasional. Her abdomen is gravid, cephalic presentation with estimated weight of 6-1/2 pounds. Sterile vaginal exam 2 cm dilated, 50% effaced, -3 station, very posterior, soft. No bloody show with the exam. ASSESSMENT: Intrauterine at 39-3/7. heart rate category 1. PLAN: Admit the patient to labor and delivery. Routine labs. Out of bed ad yumiko. Regular diet at this time. Saline lock for IV access. I did review the risks related to lack of treatment for GBS positive mother including but not limited to infection, septicemia and following delivery. She does understand that baby will have blood cultures drawn and will likely not be discharged home until 48 hours after blood cultures have been drawn to await results. The patient is desiring an epidural when she is in active labor. I plan to start misoprostol 50 mcg to be placed vaginally for cervical ripening. Likely will have Pitocin augmentation. May consider assisted rupture of membranes. I did review risks, benefits and alternatives related to induction of labor and expectant management. The patient and her partner have had all their questions answered and are requesting to proceed with induction of labor. I do anticipate cervical ripening. The patient has been verbally consented for emergency surgery and blood products if necessary.
[2018-08-13] MEDS: LR 1,000 ML IV SCH ×2 (07:32→12:11)
[2018-08-13] MEDS ORDERED: LR 1,000 ML IV SCH ×2 (08:00→12:57)
[2018-08-13] MEDS ORDERED: OXYTOCIN DRIP 30 UNITS in APPROPRIATE DILUENT 1 EA IV SCH ×3 (08:00→12:57)
[2018-08-13] MEDS ORDERED: ONDANSETRON 4MG/2ML VIAL (J2405) IV PRN ×2 (08:45→13:00)
[2018-08-13] MEDS ORDERED: EPIDURAL/PCA KEYS XX PRN (08:45)
[2018-08-13] MEDS ORDERED: FENTANYL/ROPIVACAINE/NACL BAG 100 ML EPIDURAL SCH (08:45)
[2018-08-13] MEDS ORDERED: LACTATED RINGER'S 1000 ML IV PRN (08:45)
[2018-08-13] MEDS ORDERED: REFRIGERATOR IV KEYS XX PRN (08:45)
[2018-08-13] MEDS ORDERED: diphenhydrAMINE INJ 50MG/ML VIAL (J1200) IV PRN (08:45)
[2018-08-13] MEDS ORDERED: EPIDURAL COMMENT XX SCH (08:45)
[2018-08-13] MEDS ORDERED: NALOXONE INJ 0.4 MG/1 ML VIAL (J2310) IV PRN (08:45)
[2018-08-13] MEDS ORDERED: ePHEDrine SULFATE 25 MG/5 ML(5MG/ML) SYRINGE IV PRN (08:45)
--- NOTE | 2018-08-13 10:47 | NUR ---
Progress Note Pt comfortable with epidural. Still refuses GBS prophylaxis and understands risks. VSS,normotensive, normal HR, afebrile SVE: 4cm/50%/-3 AROM, light meconium EFM: Cat I [place]: ctxs every 2-3 min; Pit at 2mU/min A/P: Approaching active labor. Meconium present. -continue with Pitocin per protocol. Candelario Tan DO
[2018-08-13] MEDS ORDERED: RHOGAM 300 MCG (1500 IU) INJ (J2790) IM SCH (13:00)
[2018-08-13] MEDS ORDERED: MEASLES,MUMPS,RUBELLA VACCINE INJ (MMR-II) (90707) SC SCH (13:00)
[2018-08-13] MEDS ORDERED: DOCUSATE SODIUM 100 MG CAP PO PRN (13:00)
[2018-08-13] MEDS ORDERED: DIBUCAINE 1% OINTMENT 30GM TOP PRN (13:00)
[2018-08-13] MEDS ORDERED: PROMETHAZINE 25 MG TAB PO PRN (13:00)
--- NOTE | 2018-08-13 13:07 | NUR ---
Delivery note Spontaneous vaginal delivery Estimated gestational age at delivery: 39+3 weeks The active phase and second stage of labor progressed in normal fashion with epidural anesthesia. Patient received Pitocin labor augmentation. Pt had screened GBS+. She declined GBS prophylaxis despite multiple providers and nurses admonishing against this decision. The head delivered left occiput anterior and restituted left occiput transverse. No nuchal cord was noted. The anterior shoulder delivered with gentle downward guidance and the remainder of the body delivered with ease. Cord clamping was delayed for approximately 1 minute after delivery. After doubly clamping the cord, I guided the FOB to cut the cord. The was placed on the patient's chest for immediate bonding. data: Apgars 8 and 9. weight 3060 grams 6 pounds, 12 ounces. Time of delivery: 1244. Sex: Male. The third stage of labor was actively managed with a bolus of IV Pitocin (30 units in 500 mL of normal saline). The placenta delivered completely intact with no missing cotyledons at 1250. A three-vessel cord with a central insertion was noted. After delivery of the placenta, the uterine fundus was approximately 2 cm below the umbilicus and firm. IV Pitocin was continued to maintain uterine tone. A normal, low level of uterine bleeding was noted. The cervix, vagina, vulva and perineum were inspected for lacerations. No laceration was noted. Excellent hemostasis was noted. Estimated blood loss: 200ml. All sponges, needles, and instruments were accounted for per [facility] department protocol. Edilson Tan D.O., F.A.C.OFranciscoG.
[2018-08-13] MEDS: PRENATAL VITAMINS CHEWABLE TABLET PO SCH (17:20)
[2018-08-13] MEDS: ACETAMINOPHEN 500 MG TAB PO PRN (17:27)
[2018-08-13] MEDS: IBUPROFEN 800 MG TAB PO PRN (22:38)
[2018-08-14] MEDS: IBUPROFEN 800 MG TAB PO PRN ×2 (05:41→13:33)
[2018-08-14 05:55] VITALS: BP 112/52
--- NOTE | 2018-08-14 06:44 | NUR ---
Day 1 s/p , uncomplicated. GBS+ untreated S: Pain well controlled, tolerating PO, ambulating without difficulty, voiding spontaneously, lochia decreasing and minimal. Denies f/c/n/v/CEBALLOS/sob/cp. O: Normotensive, normal HR, afebrile ABD: soft, nt, nd, U-2cm and firm A/P: PPD#1. Recovering well. Hemodynamically stable, afebrile, good pain control. -Routine care -Anticipate d/c home once Peds discharges baby Candelario Tan DO
[2018-08-14] MEDS: ACETAMINOPHEN 500 MG TAB PO PRN ×2 (08:32→20:47)
[2018-08-14 15:39] LABS: APPEARANCE, URINE CLEAR (CLEAR); BACTERIA, URINE AUTO NEGATIVE (NEGATIVE); BILIRUBIN, URINE AUTO NEGATIVE (NEGATIVE); BLOOD, URINE BLOOD 2+ (NEGATIVE); COLOR, URINE YELLOW (YELLOW); GLUCOSE, URINE (UA) AUTO NEGATIVE (NEGATIVE); KETONE, URINE AUTO NEGATIVE (NEGATIVE); LEUKOCYTE ESTERASE, URINE AUTO TRACE (NEGATIVE); MUCUS, URINE SMALL (NEGATIVE); NITRITE, URINE AUTO NEGATIVE (NEGATIVE); PROTEIN, URINE AUTO NEGATIVE (NEGATIVE); RBC, URINE AUTO 99 /HPF (0-3); SQUAMOUS EPITHELIAL CELL UR AU 1 /HPF (0-6); WBC, URINE AUTO 2 /HPF (0-3)
[2018-08-14 18:04] VITALS: BP 106/51
[2018-08-15] MEDS: IBUPROFEN 800 MG TAB PO PRN (02:47)
[2018-08-15 03:14] VITALS: BP 117/61
[2018-08-15 06:28] VITALS: BP 99/51
[2018-08-15] MEDS: PRENATAL VITAMINS CHEWABLE TABLET PO SCH (07:54)
[2018-08-15] MEDS ORDERED: MOTR200T44 PO (10:04)
[2018-08-15] MEDS ORDERED: MULTTAB20 PO (10:04)
[2018-08-15] MEDS ORDERED: ACET-683 PO (10:04)
== END 2018-08-15 15:15 | disposition home or self-care (01) | DRG 560 ==
LOC: M LDI 00:25 → M OBS 17:19 → UNDODISIN 08-15 13:55
PROVIDERS: ADMIT Advanced Practice Midwife; ATTEND Advanced Practice Midwife
PROC: 10E0XZZ Delivery of Products of Conception, External Approach (ICD-10-PCS; principal; 2018-08-13)
PROC: 3E0P7VZ Introduction of Hormone into Female Reproductive, Via Natural or Artificial Opening (ICD-10-PCS; 2018-08-13)
PROC: 10907ZC Drainage of Amniotic Fluid, Therapeutic from Products of Conception, Via Natural or Artificial Opening (ICD-10-PCS; 2018-08-13)
DX: O80 Encounter for full-term uncomplicated delivery (principal); Z87.51 Personal history of pre-term labor; Z37.0 Single live birth; Z3A.39 39 weeks gestation of pregnancy; Z88.0 Allergy status to penicillin; Z88.8 Allergy status to other drugs, medicaments and biological substances

== ENCOUNTER 2018-08-19 03:14 | Emergency (ER) | payer OTHER ==
[~2018-08-19 03:14] MED LIST changes: +ACET-683 PO; +MULTTAB20 PO
[2018-08-19 04:31] LABS: BASO % 0.3 % (0.0-1.0); EOS # 0.3 10^3/uL (0.0-0.50); EOS % 3.5 % (0.0-3.0); HEMATOCRIT 29.5 % (36.0-47.0); HEMOGLOBIN 9.2 g/dl (12.0-15.5); LYMPH # 2.5 10^3/uL (1.5-6.5); LYMPH % 26.2 % (24.0-44.0); MEAN CORPUSCULAR HEMOGLOBIN 22.1 pg (27.0-33.0); MEAN CORPUSCULAR HGB CONC 31.2 g/dl (32.0-36.5); MEAN CORPUSCULAR VOLUME 70.9 fl (80.0-96.0); MONO # 0.6 10^3/uL (0.0-0.8); MONO % 6.2 % (0.0-5.0); NEUTROPHILS # 5.9 10^3/uL (1.8-7.7); NEUTROPHILS % 62.5 % (36.0-66.0); PLATELET COUNT, AUTOMATED 308 10^3/uL (150-450); RED BLOOD COUNT 4.16 10^6/uL (4.00-5.40); WHITE BLOOD COUNT 9.5 10^3/uL (4.0-10.0)
--- NOTE | 2018-08-19 04:41 | REPVR ---
EXAM: CT Head Without Contrast EXAM DATE/TIME: 08/19/2018 3:52 AM CLINICAL HISTORY: 28 years old, female; Pain; Other: Pre eclampsia; Additional info: Pre-eclampsia/eclampsia TECHNIQUE: Imaging protocol: Axial computed tomography images of the head/brain without contrast. Radiation optimization: All CT scans at this facility use at least one of these dose optimization techniques: automated exposure control; mA and/or kV adjustment per patient size (includes targeted exams where dose is matched to clinical indication); or iterative reconstruction. COMPARISON: CT Head without contrast 02/17/2017 3:09 PM FINDINGS: Brain: Normal. No hemorrhage. No significant white matter disease. No edema. Ventricles: Normal. No ventriculomegaly. Bones/joints: Unremarkable. No acute fracture. Sinuses: Visualized sinuses are unremarkable. No acute sinusitis. Mastoid air cells: Visualized mastoid air cells are unremarkable. No mastoid effusion. Soft tissues: Unremarkable. IMPRESSION: Negative noncontrast head CT without change from 02/17/2017. Electronically signed by: Turner Romeo On 08/19/2018 04:41:05 AM
[2018-08-19 04:51] LABS: ALBUMIN 2.6 GM/DL (3.2-5.2); ALT/SGPT 38 U/L (12-78); BILIRUBIN,DIRECT < 0.1 MG/DL (0.0-0.2); BILIRUBIN,TOTAL 0.2 MG/DL (0.2-1.0); BLOOD UREA NITROGEN 11 MG/DL (7-18); CALCIUM LEVEL 7.6 MG/DL (8.5-10.1); CARBON DIOXIDE LEVEL 23 MEQ/L (21-32); CHLORIDE LEVEL 112 MEQ/L (98-107); GLOMERULAR FILTRATION RATE > 60.0 (>60); GLUCOSE, FASTING 79 MG/DL (70-100); MAGNESIUM LEVEL 2.4 MG/DL (1.8-2.4); POTASSIUM SERUM 4.1 MEQ/L (3.5-5.1); SODIUM LEVEL 141 MEQ/L (136-145); TOTAL PROTEIN 6.6 GM/DL (6.4-8.2); URIC ACID 5.1 MG/DL (2.6-6.0)
[2018-08-19 05:31] LABS: AMPHETAMINES LEVEL URINE NEGATIVE (NEGATIVE); BARBITURATES URINE NEGATIVE (NEGATIVE); BENZODIAZEPINES URINE NEGATIVE (NEGATIVE); CANNABINOIDS URINE NEGATIVE (NEGATIVE); COCAINE METABOLITE URINE NEGATIVE (NEGATIVE); METHADONE URINE NEGATIVE (NEGATIVE); OPIATES URINE NEGATIVE (NEGATIVE); PHENCYCLIDINE URINE NEGATIVE (NEGATIVE)
--- NOTE | 2018-08-19 06:04 | ECGEPIP ---
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
[2018-08-19 06:23] VITALS: BP 92/55
== END 2018-08-19 06:30 | disposition home or self-care (01) ==
LOC: M ED 03:14
DX: R56.9 Unspecified convulsions (principal); R00.1 Bradycardia, unspecified; Z79.899 Other long term (current) drug therapy; Z88.0 Allergy status to penicillin; Z88.1 Allergy status to other antibiotic agents; Z88.8 Allergy status to other drugs, medicaments and biological substances

== ENCOUNTER 2019-04-06 05:33 | Emergency (ER) | payer OTHER ==
[~2019-04-06] VITALS: Ht 152.4 cm; Wt 69.1 kg
[~2019-04-06 05:33] MED LIST changes: -AZIT500T2 PO; +AZIT500T5 PO
[2019-04-06] MEDS ORDERED: LORazepam 1 MG TAB PO ONE (06:15)
[2019-04-06 06:34] LABS: BASO % 0.4 % (0.0-1.0); EOS # 0.2 10^3/uL (0.0-0.5); EOS % 2.3 % (0.0-3.0); HEMATOCRIT 38.1 % (36.0-47.0); HEMOGLOBIN 11.6 g/dl (12.0-15.5); LYMPH # 2.5 10^3/uL (1.5-5.0); LYMPH % 33.9 % (24.0-44.0); MEAN CORPUSCULAR HEMOGLOBIN 22.4 pg (27.0-33.0); MEAN CORPUSCULAR HGB CONC 30.4 g/dl (32.0-36.5); MEAN CORPUSCULAR VOLUME 73.6 fl (80.0-96.0); MONO # 0.6 10^3/uL (0.0-0.8); NEUTROPHILS # 4.1 10^3/uL (1.5-8.5); NEUTROPHILS % 54.9 % (36.0-66.0); PLATELET COUNT, AUTOMATED 239 10^3/uL (150-450); RED BLOOD COUNT 5.18 10^6/uL (4.00-5.40); WHITE BLOOD COUNT 7.4 10^3/uL (4.0-10.0)
[2019-04-06 07:14] LABS: HCG, SERUM QUALITATIVE NEGATIVE (NEGATIVE)
[2019-04-06 07:15] LABS: BLOOD UREA NITROGEN 11 MG/DL (7-18); CALCIUM LEVEL 9.1 MG/DL (8.5-10.1); CARBON DIOXIDE LEVEL 24 MEQ/L (21-32); CHLORIDE LEVEL 107 MEQ/L (98-107); CREATININE FOR GFR 0.79 MG/DL (0.55-1.30); GLOMERULAR FILTRATION RATE > 60.0 (>60); GLUCOSE, FASTING 88 MG/DL (70-100); POTASSIUM SERUM 4.1 MEQ/L (3.5-5.1); SODIUM LEVEL 139 MEQ/L (136-145)
[2019-04-06 08:32] VITALS: BP 93/53
== END 2019-04-06 08:34 | disposition home or self-care (01) ==
LOC: M ED 05:33
DX: F44.5 Conversion disorder with seizures or convulsions (principal); F33.9 Major depressive disorder, recurrent, unspecified; F41.9 Anxiety disorder, unspecified; Z88.0 Allergy status to penicillin; Z88.1 Allergy status to other antibiotic agents

== ENCOUNTER 2019-05-27 18:17 | Emergency (ER) | payer OTHER ==
[~2019-05-27] VITALS: Ht 152.4 cm; Wt 71.9 kg
[2019-05-27 19:04] LABS: HEMATOCRIT 37.2 % (36.0-47.0); HEMOGLOBIN 11.3 g/dl (12.0-15.5); MEAN CORPUSCULAR HEMOGLOBIN 21.9 pg (27.0-33.0); MEAN CORPUSCULAR HGB CONC 30.4 g/dl (32.0-36.5); MEAN CORPUSCULAR VOLUME 72.2 fl (80.0-96.0); PLATELET COUNT, AUTOMATED 284 10^3/uL (150-450); RED BLOOD COUNT 5.15 10^6/uL (4.00-5.40); WHITE BLOOD COUNT 8.2 10^3/uL (4.0-10.0)
[2019-05-27 19:18] LABS: GLUCOSE, URINE (UA) MANUAL NEGATIVE (NEGATIVE); KETONE, URINE MANUAL 1+ mg/dL (NEGATIVE)
[2019-05-27 19:19] LABS: UROBILINOGEN, URINE MANUAL NORMAL (NORMAL)
[2019-05-27 19:20] LABS: BILIRUBIN, URINE MANUAL NEGATIVE (NEGATIVE)
[2019-05-27 19:26] LABS: RBC, URINE TNTC /hpf (0-3); SQUAMOUS EPITHELIAL CELL URINE SMALL AMOUNT /hpf (SMALL AMT)
[2019-05-27 19:27] LABS: BACTERIA, URINE MOD AMOUNT; HYALINE CAST, URINE NONE SEEN /lpf (0-1)
--- NOTE | 2019-05-27 20:48 | REPVR ---
PROCEDURE INFORMATION: Exam: US Retroperitoneal Limited, Kidneys Exam date and time: 05/27/2019 8:16 PM Age: 29 years old Clinical indication: Other: Pain urinating per patient; Additional info: Lmp 04/24/19, vaginal bleeding, hcg x 2 + at home TECHNIQUE: Imaging protocol: Real-time ultrasound of the retroperitoneum with image documentation. Examination was focused on the kidneys. COMPARISON: CT ABD/PEL W/IV ORAL CONTRAS 06/09/2017 5:44 AM FINDINGS: Right kidney: Right kidney measures 10.7 x 5 x 3.7 cm. Left kidney: Left kidney measures 11.2 x 4.8 x 4.6 cm. Bladder: Bladder not evaluated as the patient emptied her bladder prior to examination. IMPRESSION: Unremarkable evaluation of the kidneys. Electronically signed by: Kvng Ortiz On 05/27/2019 20:48:26 PM
--- NOTE | 2019-05-27 20:49 | REPVR ---
PROCEDURE INFORMATION: Exam: US Pelvis Complete, Transabdominal Exam date and time: 05/27/2019 8:16 PM Age: 29 years old Clinical indication: Other: Vaginal bleeding; Additional info: Vaginal bleeding, hcg+ at home x 2, hcg quant <1 in er TECHNIQUE: Imaging protocol: Real-time transabdominal pelvic ultrasound with image documentation. Complete exam. COMPARISON: US PELVIC NON-OB COMPLETE 08/17/2017 6:15 AM FINDINGS: Uterus/cervix: Uterus measures 8.7 x 4.4 x 5.9 cm. Endometrium measures 9 mm. Right adnexa: Right ovary measures 3.3 x 1.7 x 1.8 cm. Normal flow. Left adnexa: Left ovary measures 3.1 x 1.3 x 2.5 cm. Normal flow. Free fluid: None. Bladder: Normal. IMPRESSION: Normal examination. Normal flow in both ovaries. No evidence of torsion or mass. Electronically signed by: Kvng Ortiz On 05/27/2019 20:49:28 PM
[2019-05-27 21:50] VITALS: BP 109/52
[2019-05-27] MEDS ORDERED: KEFL500C17 PO (21:52)
== END 2019-05-27 22:04 | disposition home or self-care (01) ==
LOC: M ED 18:17
DX: Z32.02 Encounter for pregnancy test, result negative (principal); N94.6 Dysmenorrhea, unspecified; N30.01 Acute cystitis with hematuria; Z88.0 Allergy status to penicillin; Z88.1 Allergy status to other antibiotic agents